=== PATIENT | male | born 1965 | race African-American/Black ===

== ENCOUNTER 2017-05-05 23:19 | Emergency (ER) | payer OTHER ==
--- NOTE | 2017-05-06 00:05 | RAD ---
PORTABLE CHEST 05/05/17 No prior films were available for comparison. This portable study at 2330 shows mild cardiomegaly wit hout signs of congestion. No infiltrate or effusion was seen. The lungs are clear. The aorta is somew hat tortuous and mildly dilated. IMPRESSION: Mild cardiomegaly. POS: HOME
[2017-05-06] MEDS ORDERED: Metoprolol Tartrate 5 MG/5 ML VIAL ONE (00:16)
[2017-05-06 00:21] LABS: Hemoglobin 12.9 g/dL (14.0-18.0); Mean Corpuscular HGB CONC 33.4 g/dL (32.0-36.0); Mean Corpuscular Hemoglobin 28.4 pg (27.0-31.0); Mean Corpuscular Volume 84.9 fl (80.0-94.0); Mean Platelet Volume 10.6 fL (7.4-10.4); Platelet Count 223 thou/uL (130-400); RBC Distribution Width 13.1 % (11.5-14.5); Red Blood Cell (RBC) Count 4.55 mill/uL (4.70-6.10); White Blood Cell (WBC) Count 21.7 thou/uL (4.8-10.8)
[2017-05-06 00:28] LABS: ALT (SGPT) 28 U/L (8-55); AST (SGOT) 29 U/L (5-34); Alkaline Phosphatase 100 U/L (40-150); Anion Gap 19 mmol/L (10-20); BUN (Urea Nitrogen) 14 mg/dL (8.4-25.7); Bilirubin, Total 0.3 mg/dL (0.2-1.2); Calc. Creatinine Clearance 0 mL/min (70-130); Calcium 9.6 mg/dL (7.8-10.44); Carbon Dioxide 25 mmol/L (22-29); Chloride 97 mmol/L (98-107); Estimated GFR-MDRD 56; Glucose 113 mg/dL (70-105); Lipase 38 U/L (8-78); Potassium 3.1 mmol/L (3.5-5.1); Sodium 138 mmol/L (136-145)
[2017-05-06 00:32] LABS: CKMB 1.4 ng/mL (0-6.6); Troponin I 0.173 ng/mL (< 0.028)
[2017-05-06 00:37] LABS: Bilirubin Negative (Negative); Blood, Urine Negative (Negative); Clarity Clear (Clear); Glucose, Urine (Dipstick) Negative (Negative); Leukocyte Negative (Negative); Nitrite Negative (Negative); Protein, Urine (Dipstick) Negative (Neg-Trace); Urobilinogen 0.2 mg/dL (0.2-1.0)
[2017-05-06] MEDS ORDERED: Nitroglycerin 50 MG/250 ML BOT 250 ML ONE (00:41)
[2017-05-06 00:45] LABS: Band 1 % (5-11); Lymphocytes 6 % (21-51); MDiff Complete? YES; Monocytes 6 % (0-10); Neutrophil 86 % (42-75); PLT Morphology Comment Appears Adequate; RBC Morphology Normal
[2017-05-06] MEDS ORDERED: Potassium Chloride 20 MEQ TAB ONE (00:52)
[2017-05-06] MEDS ORDERED: Acetaminophen 500 MG TAB ONE (00:52)
[2017-05-06] MEDS ORDERED: Nitroglycerin 2% Ointment 1 INCH/1 GM Packet ONE (01:00)
[2017-05-06 01:04] LABS: Amphetamine Not Detected (NotDetected); Barbiturates Screen Not Detected (NotDetected); Benzodiazepine Screen Not Detected (NotDetected); Cocaine Metabolite Screen Not Detected (NotDetected); Medtox Control Line Valid? VALID (VALID); Methadone Not Detected (NotDetected); Methamphetamine Not Detected (NotDetected); Opiate Screen Not Detected (NotDetected); Oxycodone Screen Not Detected (NotDetected); Phencyclidine (PCP) Not Detected (NotDetected); THC/Cannabinoid Screen Not Detected (NotDetected); Tricyclic Screen Not Detected (NotDetected)
[2017-05-06] MEDS ORDERED: Enoxaparin Sodium 100 MG/ML SYRINGE ONE (01:08)
== END 2017-05-06 01:15 | disposition short-term general hospital (02) ==
LOC: BURERS 23:19
DX: I21.4 Non-ST elevation (NSTEMI) myocardial infarction (principal); I10 Essential (primary) hypertension; E87.6 Hypokalemia; Z79.899 Other long term (current) drug therapy; Z79.82 Long term (current) use of aspirin
CPT/HCPCS: 71045; 80053; 80306; 81003; 82553; 83690; 84484; 85025; 93005; 94760; 96372; 96374; 96375; J1650

== ENCOUNTER 2017-06-01 13:15 | Emergency (ER) | payer OTHER ==
[2017-06-01 13:33] LABS: #Basophils 0.1 thou/uL (0.0-0.2); #Eosinphils 0.4 thou/uL (0.0-0.7); #Lymphocytes 2.5 thou/uL (1.20-3.40); #Monocytes 0.6 thou/uL (0.11-0.59); #Neutrophils 6.8 thou/uL (1.40-6.50); %Basophils 1.4 % (0.0-1.0); %Eosinophils 3.7 % (0.0-10.0); %Lymphocytes 23.9 % (21.0-51.0); %Monocytes 5.5 % (0.0-10.0); %Neutrophils 65.5 % (42.0-75.0); Hemoglobin 13.2 g/dL (14.0-18.0); Mean Corpuscular HGB CONC 33.7 g/dL (32.0-36.0); Mean Corpuscular Hemoglobin 28.3 pg (27.0-31.0); Mean Platelet Volume 9.8 fL (7.4-10.4); Platelet Count 240 thou/uL (130-400); RBC Distribution Width 13.1 % (11.5-14.5); Red Blood Cell (RBC) Count 4.66 mill/uL (4.70-6.10); White Blood Cell (WBC) Count 10.4 thou/uL (4.8-10.8)
[2017-06-01 13:49] LABS: CKMB 1.8 ng/mL (0-6.6); Troponin I 0.113 ng/mL (< 0.028)
[2017-06-01 14:30] LABS: ALT (SGPT) 56 U/L (8-55); AST (SGOT) 27 U/L (5-34); Albumin 4.5 g/dL (3.5-5.0); Alkaline Phosphatase 119 U/L (40-150); Anion Gap 17 mmol/L (10-20); BUN (Urea Nitrogen) 14 mg/dL (8.4-25.7); Bilirubin, Total 0.3 mg/dL (0.2-1.2); Calc. Creatinine Clearance 0 mL/min (70-130); Calcium 9.9 mg/dL (7.8-10.44); Carbon Dioxide 27 mmol/L (22-29); Chloride 99 mmol/L (98-107); Estimated GFR-MDRD 59; Globulin 4.6 g/dL (2.4-3.5); Glucose 106 mg/dL (70-105); Potassium 3.6 mmol/L (3.5-5.1); Protein, Total 9.1 g/dL (6.0-8.3); Sodium 139 mmol/L (136-145)
[2017-06-01] MEDS ORDERED: Famotidine 20 MG TAB ONE (14:38)
--- NOTE | 2017-06-01 15:43 | RAD ---
PORTABLE CHEST: Date: 06-01-17 FINDINGS: An AP portable film at 1313 is compared with 05-05-17 study. Mild cardiomegaly is present but there is no congestive change or pleural effusion. The lungs are elizabeth ar. The trachea is midline. IMPRESSION: Mild cardiomegaly, minimally different than before. POS: HOME
== END 2017-06-01 14:48 | disposition home or self-care (01) ==
LOC: BURERS 13:15
DX: I12.9 Hypertensive chronic kidney disease with stage 1 through stage 4 chronic kidney disease, or unspecified chronic kidney disease (principal); N18.9 Chronic kidney disease, unspecified; R79.89 Other specified abnormal findings of blood chemistry; Z79.82 Long term (current) use of aspirin; Z79.899 Other long term (current) drug therapy
CPT/HCPCS: 71045; 80053; 82553; 84484; 85025; 93005; 94760